=== PATIENT | male | born 1955 | race Caucasian/White ===

== ENCOUNTER 2018-02-22 11:40 | Inpatient (IN) | payer MEDICAID ==
[~2018-02-22] VITALS: Ht 185.4 cm; Wt 85.3 kg
[~2018-02-22 11:40] MED LIST: AMIO100T4 PO; COR12 PO; COR6 PO; FEXO-25 PO; FURO-152 PO; LISI-650 PO; MAGN200T5 PO; WARF2TAB57 PO; WARF4TAB40 PO
[2018-02-22 13:50] LABS: CHLORIDE 104 mEq/L (98-107)
[2018-02-22 13:51] LABS: BASOPHILS % 0.7 % (0.0-2.0); EOSINOPHILS % 2.7 % (0.0-5.0); HEMATOCRIT. 36.4 % (42.0-52.0); HEMOGLOBIN. 12.3 g/dL (14.0-18.0); LYMPHOCYTES % 16.9 % (20.0-50.0); MEAN CORPUSCULAR VOLUME 94.3 fL (80.0-94.0); MEAN PLATELET VOLUME 8.5 fl (7.4-10.4); MONOCYTES % 10.7 % (2.0-8.0); PLATELET 169 x1000/uL (130-400); RED BLOOD CELL COUNT 3.86 mill/uL (4.7-6.1); RED CELL DISTRIBUTION WIDTH 13.3 % (11.6-14.6)
[2018-02-22 13:57] LABS: INR 1.9; PARTIAL THROMBOPLASTIN TIME 35.4 sec (23.4-31.0); PROTHROMBIN TIME 19.1 sec (9.1-11.1)
[2018-02-22] MEDS ORDERED: FUROSEMIDE 20MG/2ML VIAL IVP ONE (14:15)
[2018-02-22 16:44] VITALS: BP 118/69
[2018-02-22] MEDS ORDERED: CLONIDINE 0.1MG TABLET PO PRN (16:45)
[2018-02-22] MEDS ORDERED: IPRATROPIUM/ALBUTEROL 0.5-3(2.5)MG/3ML NEB INH PRN (16:45)
[2018-02-22] MEDS ORDERED: ONDANSETRON HCL 4MG/2ML INJ IV PRN (16:45)
[2018-02-22] MEDS ORDERED: MAGNESIUM/ALUMINUM HYDROXIDE/SIMETHICONE 30ML UDC PO PRN (16:45)
[2018-02-22] MEDS ORDERED: FUROSEMIDE 20MG/2ML VIAL IV NR (17:00)
[2018-02-22 17:10] VITALS: BP 118/69
[2018-02-22] MEDS ORDERED: ENOXAPARIN 30MG/0.3ML SYR SUBCUT SCH (17:15)
[2018-02-22] MEDS ORDERED: FERR325T6 PO (17:29)
[2018-02-22] MEDS ORDERED: LEVO50TA8 PO (17:29)
[2018-02-22 18:22] VITALS: BP 85/18
[2018-02-22 18:24] VITALS: BP 111/64
[2018-02-22 18:54] LABS: *AMPHETAMINES SCREEN URINE NEGATIVE (NEGATIVE)
[2018-02-22 18:55] LABS: *BARBITURATES SCREEN URINE NEGATIVE (NEGATIVE); *BENZODIAZEPINES SCREEN URINE NEGATIVE (NEGATIVE); *COCAINE SCREEN URINE NEGATIVE (NEGATIVE); METHADONE URINE SCREEN NEGATIVE (NEGATIVE); OPIATES URINE SCREEN NEGATIVE (NEGATIVE)
[2018-02-22 18:56] LABS: CANNABINOID URINE SCREEN NEGATIVE (NEGATIVE); PHENCYCLIDINE URINE SCREEN NEGATIVE (NEGATIVE)
[2018-02-22 20:00] VITALS: BP 116/76
[2018-02-22] MEDS ORDERED: ENOXAPARIN 80MG/0.8ML SYR SUBCUT SCH (21:00)
[2018-02-22] MEDS: SODIUM CHLORIDE 0.9% INJ 3ML FLUSH IVF SCH (21:15)
[2018-02-22] MEDS: CARVEDILOL 6.25 MG TABLET PO SCH (21:18)
[2018-02-22 22:00] VITALS: BP 105/67
[2018-02-23] VITALS (11 sets, daily range): BP systolic 91–125; BP diastolic 38–76
[2018-02-23] MEDS: SODIUM CHLORIDE 0.9% INJ 3ML FLUSH IVF SCH ×3 (05:41→22:35)
[2018-02-23 07:04] LABS: BASOPHILS % 0.8 % (0.0-2.0); EOSINOPHILS % 3.2 % (0.0-5.0); HEMATOCRIT. 35.2 % (42.0-52.0); HEMOGLOBIN. 12.1 g/dL (14.0-18.0); LYMPHOCYTES % 20.8 % (20.0-50.0); MEAN CORPUSCULAR HEMOGLOBIN 31.9 pg (28.0-32.0); MEAN CORPUSCULAR VOLUME 93.2 fL (80.0-94.0); MEAN PLATELET VOLUME 8.6 fl (7.4-10.4); NEUTROPHILS % 63.2 % (40.0-76.0); PLATELET 164 x1000/uL (130-400); RED BLOOD CELL COUNT 3.78 mill/uL (4.7-6.1); RED CELL DISTRIBUTION WIDTH 13.1 % (11.6-14.6)
[2018-02-23 07:07] LABS: D-DIMER 0.57 mg/L FEU (<0.50); INR 1.7; PROTHROMBIN TIME 17.1 sec (9.1-11.1)
[2018-02-23 07:15] LABS: CHLORIDE 105 mEq/L (98-107)
[2018-02-23 07:24] LABS: CREATINE KINASE MB FRACTION 1.2 ng/mL (0.5-3.6); LDL CHOLESTEROL 111 mg/dL (5-100)
[2018-02-23 07:25] LABS: CREATINE KINASE 91 IU/L (39-308)
[2018-02-23 07:26] LABS: HDL CHOLESTEROL 41 mg/dL (40-59)
[2018-02-23] MEDS: CARVEDILOL 6.25 MG TABLET PO SCH ×2 (08:42→19:58)
[2018-02-23] MEDS: ENOXAPARIN 80MG/0.8ML SYR SUBCUT SCH ×2 (09:11→19:58)
[2018-02-23] MEDS: LEVOTHYROXINE SODIUM 50MCG TABLET PO SCH (11:53)
[2018-02-23] MEDS ORDERED: REGADENOSON 0.4 MG/5 ML IV ONE (12:45)
[2018-02-23] MEDS ORDERED: REGADENOSON 0.4 MG/5 ML IV SCH (16:15)
[2018-02-23] MEDS: DILTIAZEM HCL 30MG TABLET PO SCH ×2 (17:53→23:05)
[2018-02-24] VITALS (14 sets, daily range): BP systolic 100–120; BP diastolic 52–83
[2018-02-24 05:38] LABS: EOSINOPHILS % 4.7 % (0.0-5.0); HEMOGLOBIN. 11.6 g/dL (14.0-18.0); LYMPHOCYTES % 28.9 % (20.0-50.0); MEAN CORPUSCULAR HEMOGLOBIN 32.7 pg (28.0-32.0); MEAN CORPUSCULAR VOLUME 93.2 fL (80.0-94.0); MEAN PLATELET VOLUME 8.5 fl (7.4-10.4); MONOCYTES % 14.5 % (2.0-8.0); NEUTROPHILS % 50.9 % (40.0-76.0); PLATELET 149 x1000/uL (130-400); RED BLOOD CELL COUNT 3.54 mill/uL (4.7-6.1); RED CELL DISTRIBUTION WIDTH 13.4 % (11.6-14.6)
[2018-02-24 05:46] LABS: CHLORIDE 105 mEq/L (98-107)
[2018-02-24] MEDS: DILTIAZEM HCL 30MG TABLET PO SCH ×4 (06:00→23:46)
[2018-02-24] MEDS: LEVOTHYROXINE SODIUM 50MCG TABLET PO SCH (06:16)
[2018-02-24] MEDS: SODIUM CHLORIDE 0.9% INJ 3ML FLUSH IVF SCH ×3 (06:16→21:55)
[2018-02-24] MEDS: CARVEDILOL 6.25 MG TABLET PO SCH ×2 (09:00→21:42)
[2018-02-24] MEDS: ENOXAPARIN 80MG/0.8ML SYR SUBCUT SCH ×2 (09:00→21:41)
[2018-02-24] MEDS ORDERED: REGADENOSON 0.4 MG/5 ML IV ONE (09:35)
[2018-02-24] MEDS ORDERED: WARFARIN SODIUM 5MG TABLET PO NR (18:00)
[2018-02-24] MEDS: ACETAMINOPHEN 325MG TABLET PO PRN (21:54)
[2018-02-25] VITALS (14 sets, daily range): BP systolic 100–142; BP diastolic 57–99
[2018-02-25 06:05] LABS: INR 1.3; PROTHROMBIN TIME 12.9 sec (9.1-11.1)
[2018-02-25] MEDS: DILTIAZEM HCL 30MG TABLET PO SCH ×3 (06:58→17:47)
[2018-02-25] MEDS: LEVOTHYROXINE SODIUM 50MCG TABLET PO SCH (06:58)
[2018-02-25] MEDS: CARVEDILOL 6.25 MG TABLET PO SCH ×2 (09:00→21:29)
[2018-02-25] MEDS: ENOXAPARIN 80MG/0.8ML SYR SUBCUT SCH ×2 (09:10→21:31)
[2018-02-25] MEDS: SODIUM CHLORIDE 0.9% INJ 3ML FLUSH IVF SCH ×3 (09:11→21:31)
[2018-02-25] MEDS ORDERED: WARFARIN SODIUM 7.5MG TABLET PO NR (18:00)
[2018-02-26] VITALS (17 sets, daily range): BP systolic 102–168; BP diastolic 35–86
[2018-02-26] MEDS: DILTIAZEM HCL 30MG TABLET PO SCH ×4 (00:16→17:57)
[2018-02-26] MEDS: SODIUM CHLORIDE 0.9% INJ 3ML FLUSH IVF SCH ×3 (06:02→22:38)
[2018-02-26] MEDS: LEVOTHYROXINE SODIUM 50MCG TABLET PO SCH (06:02)
[2018-02-26 06:11] LABS: T4 FREE 1.07 ng/dL (0.76-1.46)
[2018-02-26] MEDS: CARVEDILOL 6.25 MG TABLET PO SCH ×2 (08:29→22:09)
[2018-02-26] MEDS: ENOXAPARIN 80MG/0.8ML SYR SUBCUT SCH (12:52)
[2018-02-26] MEDS: ACETAMINOPHEN 325MG TABLET PO PRN (22:09)
[2018-02-27] VITALS (12 sets, daily range): BP systolic 105–140; BP diastolic 58–79
[2018-02-27] MEDS: DILTIAZEM HCL 30MG TABLET PO SCH ×4 (00:32→17:57)
[2018-02-27] MEDS: LEVOTHYROXINE SODIUM 50MCG TABLET PO SCH (06:16)
[2018-02-27] MEDS: SODIUM CHLORIDE 0.9% INJ 3ML FLUSH IVF SCH ×3 (06:26→21:30)
[2018-02-27 06:39] LABS: EOSINOPHILS % 5.3 % (0.0-5.0); HEMOGLOBIN. 10.5 g/dL (14.0-18.0); LYMPHOCYTES % 29.8 % (20.0-50.0); MEAN CORPUSCULAR HEMOGLOBIN 32.6 pg (28.0-32.0); MEAN CORPUSCULAR VOLUME 93.2 fL (80.0-94.0); MEAN PLATELET VOLUME 8.2 fl (7.4-10.4); MONOCYTES % 14.3 % (2.0-8.0); NEUTROPHILS % 49.6 % (40.0-76.0); PLATELET 142 x1000/uL (130-400); RED BLOOD CELL COUNT 3.23 mill/uL (4.7-6.1); RED CELL DISTRIBUTION WIDTH 13.1 % (11.6-14.6)
[2018-02-27 06:44] LABS: INR 1.6; PROTHROMBIN TIME 15.5 sec (9.1-11.1)
[2018-02-27 06:56] LABS: CHLORIDE 103 mEq/L (98-107)
[2018-02-27] MEDS ORDERED: LIDOCAINE HCL 1% 20ML VIAL (Pyxis) INJ ONE (07:24)
[2018-02-27] MEDS ORDERED: FENTANYL CITRATE/PF 50MCG/ML 2ML VIAL ONE (08:15)
[2018-02-27] MEDS ORDERED: ROCURONIUM BROMIDE 10MG/ML VIAL 5ML IV ONE ×2 (08:15→08:51)
[2018-02-27] MEDS ORDERED: MIDAZOLAM HCL 2 MG/2 ML VIAL ONE (08:15)
[2018-02-27] MEDS ORDERED: SUCCINYLCHOLINE CHLORIDE 200MG/10ML IV ONE (08:16)
[2018-02-27] MEDS ORDERED: CEFAZOLIN SODIUM 1000MG/VIAL ONE (08:16)
[2018-02-27] MEDS ORDERED: ETOMIDATE 2MG/ML 10ML VIAL IV ONE (08:51)
[2018-02-27] MEDS ORDERED: HEPARIN 1000 UNITS/ML 10ML ONE (08:51)
[2018-02-27] MEDS: CARVEDILOL 6.25 MG TABLET PO SCH ×2 (09:00→21:31)
[2018-02-27] MEDS ORDERED: MORPHINE SULFATE 10 MG/ML CPJ IV PRN (10:00)
[2018-02-27] MEDS ORDERED: MEPERIDINE HCL/PF 25MG/ML CPJ IV PRN (10:00)
[2018-02-27] MEDS ORDERED: FENTANYL CITRATE/PF 50MCG/ML 2ML VIAL IV PRN (10:00)
[2018-02-27] MEDS ORDERED: ONDANSETRON HCL 4MG/2ML INJ IV PRN ×2 (10:00→14:00)
[2018-02-27] MEDS ORDERED: ATROPINE SULFATE 1MG/10ML SYR IV PRN (14:00)
[2018-02-27] MEDS: HYDROMORPHONE HCL/PF 2MG/ML CPJ IV PRN ×2 (14:54→15:19)
[2018-02-27] MEDS ORDERED: HEPARIN SODIUM 1,000 UNIT/1ML VIAL IV ONE (15:06)
[2018-02-27] MEDS ORDERED: WARFARIN SODIUM 5MG TABLET PO NR (22:15)
[2018-02-28] VITALS (9 sets, daily range): BP systolic 103–145; BP diastolic 53–84
[2018-02-28] MEDS: DILTIAZEM HCL 30MG TABLET PO SCH ×4 (00:28→18:00)
[2018-02-28] MEDS: LEVOTHYROXINE SODIUM 50MCG TABLET PO SCH (06:25)
[2018-02-28] MEDS: SODIUM CHLORIDE 0.9% INJ 3ML FLUSH IVF SCH ×2 (06:27→14:00)
[2018-02-28 06:42] LABS: HEMATOCRIT. 29.4 % (42.0-52.0); HEMOGLOBIN. 10.3 g/dL (14.0-18.0); MEAN PLATELET VOLUME 8.3 fl (7.4-10.4); PLATELET 124 x1000/uL (130-400); RED BLOOD CELL COUNT 3.13 mill/uL (4.7-6.1); RED CELL DISTRIBUTION WIDTH 13.1 % (11.6-14.6)
[2018-02-28 06:50] LABS: INR 1.5; PROTHROMBIN TIME 14.7 sec (9.1-11.1)
[2018-02-28 07:08] LABS: CHLORIDE 104 mEq/L (98-107)
[2018-02-28] MEDS: CARVEDILOL 6.25 MG TABLET PO SCH (08:31)
[2018-02-28 09:46] LABS: PLATELET ESTIMATE SLIGHTLY DECREASED
[2018-02-28] MEDS: ACETAMINOPHEN 325MG TABLET PO PRN (10:58)
[2018-02-28] MEDS ORDERED: WARFARIN SODIUM 3MG TABLET PO SCH (18:00)
== END 2018-02-28 18:11 | disposition home or self-care (01) | DRG 175 ==
LOC: ER 11:40 → EDBEDREQTM 13:34 → EDBEDREQ 13:34 → EDBEDREQSVC 13:34 → 3WST 13:51 → EDBEDREQ 13:55 → ENRESERV 15:09
PROVIDERS: ADMIT Internal Medicine; ATTEND Internal Medicine
PROC: 02583ZZ Destruction of Conduction Mechanism, Percutaneous Approach (ICD-10-PCS; principal; 2018-02-27)
PROC: 4A023N8 Measurement of Cardiac Sampling and Pressure, Bilateral, Percutaneous Approach (ICD-10-PCS; 2018-02-27)
PROC: B2141ZZ Fluoroscopy of Right Heart using Low Osmolar Contrast (ICD-10-PCS; 2018-02-27)
PROC: 02573ZK Destruction of Left Atrial Appendage, Percutaneous Approach (ICD-10-PCS; 2018-02-27)
PROC: 4A0234Z Measurement of Cardiac Electrical Activity, Percutaneous Approach (ICD-10-PCS; 2018-02-27)
PROC: B2111ZZ Fluoroscopy of Multiple Coronary Arteries using Low Osmolar Contrast (ICD-10-PCS; 2018-02-27)
DX: I48.4 Atypical atrial flutter (principal); N17.0 Acute kidney failure with tubular necrosis; I47.2 Ventricular tachycardia; I11.0 Hypertensive heart disease with heart failure; E87.5 Hyperkalemia; J84.10 Pulmonary fibrosis, unspecified; I42.9 Cardiomyopathy, unspecified; Q25.1 Coarctation of aorta; R07.9 Chest pain, unspecified; J44.9 Chronic obstructive pulmonary disease, unspecified; R74.0 Nonspecific elevation of levels of transaminase and lactic acid dehydrogenase [LDH]; Q23.0 Congenital stenosis of aortic valve; Z79.01 Long term (current) use of anticoagulants; Z87.891 Personal history of nicotine dependence; Z95.2 Presence of prosthetic heart valve; Z82.49 Family history of ischemic heart disease and other diseases of the circulatory system; I50.9 Heart failure, unspecified
CPT/HCPCS: 36415; 36620; 71045; 78452; 80048; 80061; 80305; 82550; 82553; 83735; 83880; 84439; 84443; 84484; 85347; 85379; 86850; 86900; 92960; 93005; 93017; 93306; 93613; 93621; 93655; 93656; 93662; 93970; 96372; 96374; 96375; 99285; A9500; C1730; C1731; C1732; C1759; C1760; C1893; J0330; J0690; J1170; J1644; J1650; J1940; J2250; J2405; J2785; J3010; J3490

== ENCOUNTER 2020-01-25 05:59 | Inpatient (IN) | payer MEDICAID ==
[~2020-01-25] VITALS: Ht 185.4 cm; Wt 95.5 kg
[2020-01-25] VITALS (7 sets, daily range): BP systolic 109–131; BP diastolic 55–74
[~2020-01-25 05:59] MED LIST changes: -AMIO100T4 PO; +ATOR10TA PO; -COR12 PO; +FERR325T6 PO; -FEXO-25 PO; -FURO-152 PO; +FURO40TA5 MT; +LEVO50TA8 PO; -LISI-650 PO; +LOV80 SQ
[2020-01-25] MEDS ORDERED: MAGN400T26 MT (07:58)
[2020-01-25] MEDS ORDERED: WARF3TAB58 MT (07:58)
[2020-01-25] MEDS ORDERED: WARF-67 MT (07:58)
[2020-01-25] MEDS ORDERED: LISI-186 MT (07:58)
[2020-01-25] MEDS ORDERED: HEPARIN 1,000 UNITS PREMIX 1,500 ML IV ONE (08:48)
[2020-01-25] MEDS ORDERED: MIDAZOLAM HCL 2 MG/2 ML VIAL ONE (08:51)
[2020-01-25] MEDS ORDERED: PROPOFOL 200MG/20ML VIAL IV ONE ×2 (08:51→11:09)
[2020-01-25] MEDS ORDERED: FENTANYL CITRATE/PF 50MCG/ML 2ML VIAL ONE ×2 (08:51→14:00)
[2020-01-25] MEDS ORDERED: ONDANSETRON HCL 4MG/2ML INJ ONE (08:52)
[2020-01-25] MEDS ORDERED: DEXAMETHASONE 4MG/ML 1ML VIAL ONE (08:52)
[2020-01-25] MEDS ORDERED: SODIUM CHLORIDE 0.9% 10ML VIAL ONE (09:37)
[2020-01-25] MEDS ORDERED: EPHEDRINE SULFATE 50MG/ML VIAL ONE (09:37)
[2020-01-25] MEDS ORDERED: CEFAZOLIN SODIUM 1000MG/VIAL ONE (09:37)
[2020-01-25] MEDS ORDERED: LIDOCAINE HCL/PF 1% 10 MG/ML 5ML VIAL ONE (09:37)
[2020-01-25] MEDS ORDERED: ONDANSETRON HCL 4MG/2ML INJ IV PRN ×3 (09:45→19:45)
[2020-01-25] MEDS ORDERED: LABETALOL 5MG/ML SYR 20 MG/4 ML SYRINGE IV PRN (09:45)
[2020-01-25] MEDS ORDERED: MEPERIDINE HCL/PF 25MG/ML CPJ IV PRN (09:45)
[2020-01-25] MEDS ORDERED: HYDROMORPHONE HCL/PF 2MG/ML CPJ IV PRN ×2 (09:45→16:30)
[2020-01-25] MEDS ORDERED: LIDOCAINE HCL 1% 20ML VIAL (Pyxis) INJ ONE ×2 (09:58→09:59)
[2020-01-25] MEDS ORDERED: HEPARIN SODIUM 1,000 UNIT/1ML VIAL IV ONE (10:00)
[2020-01-25] MEDS ORDERED: ROCURONIUM BROMIDE 10MG/ML VIAL 5ML IV ONE ×3 (11:06→13:40)
[2020-01-25] MEDS ORDERED: GLYCOPYRROLATE 0.2 MG/ML 2ML VIAL ONE (14:25)
[2020-01-25] MEDS ORDERED: NEOSTIGMINE METHYLSULFATE 1MG/ML 10 ML VIAL ONE (14:26)
[2020-01-25] MEDS ORDERED: ACETAMINOPHEN 325MG TABLET PO PRN (14:30)
[2020-01-25 14:44] LABS: INR 2.9; PROTHROMBIN TIME 29.2 sec (9.6-11.0)
[2020-01-25] MEDS ORDERED: WARFARIN SODIUM 3MG TABLET PO NR (19:00)
[2020-01-25] MEDS ORDERED: ATORVASTATIN CALCIUM 10MG TABLET PO SCH (21:00)
[2020-01-26] VITALS (9 sets, daily range): BP systolic 107–127; BP diastolic 47–70
[2020-01-26] MEDS ORDERED: FURO40TA5 MT (04:37)
[2020-01-26] MEDS ORDERED: LISI-186 MT (04:37)
[2020-01-26] MEDS ORDERED: WARF6TAB48 MT (04:37)
[2020-01-26] MEDS ORDERED: FISH GT (04:37)
[2020-01-26] MEDS ORDERED: MAGN400C MT (04:37)
[2020-01-26] MEDS ORDERED: MULT-1274 PO (04:37)
[2020-01-26] MEDS ORDERED: FERR325T6 PO (04:37)
[2020-01-26] MEDS ORDERED: LEVO50TA8 MT (04:37)
[2020-01-26 06:49] LABS: INR 2.8; PROTHROMBIN TIME 27.6 sec (9.6-11.0)
[2020-01-26] MEDS ORDERED: LEVOTHYROXINE SODIUM 50MCG TABLET PO SCH (06:50)
[2020-01-26 06:55] LABS: HEMATOCRIT. 33.6 % (42.0-52.0); HEMOGLOBIN. 11.5 g/dL (14.0-18.0); MEAN CORPUSCULAR HEMOGLOBIN 31.6 pg (28.0-32.0); MEAN CORPUSCULAR VOLUME 92.5 fL (80.0-94.0); PLATELET 217 x1000/uL (130-400); RED BLOOD CELL COUNT 3.64 mill/uL (4.7-6.1); RED CELL DISTRIBUTION WIDTH 13.3 % (11.6-14.6)
[2020-01-26 07:20] LABS: CHLORIDE 101 mEq/L (98-107)
[2020-01-26] MEDS ORDERED: CARVEDILOL 6.25 MG TABLET PO SCH (07:20)
[2020-01-26] MEDS ORDERED: LISINOPRIL 5MG TABLET PO SCH (09:00)
[2020-01-26] MEDS ORDERED: FUROSEMIDE 40MG TABLET PO SCH (09:00)
[2020-01-26] MEDS ORDERED: MAGNESIUM OXIDE 400MG TABLET PO SCH (09:00)
[2020-01-26 11:16] LABS: PLATELET ESTIMATE NORMAL
[2020-01-26] MEDS ORDERED: WARFARIN SODIUM 3MG TABLET PO SCH (18:00)
== END 2020-01-26 16:44 | disposition home or self-care (01) | DRG 175 ==
LOC: CCL 05:59 → 3WST 17:00
PROVIDERS: ADMIT Internal Medicine Clinical Cardiac Electrophysiology; ATTEND Internal Medicine Clinical Cardiac Electrophysiology
PROC: 02583ZZ Destruction of Conduction Mechanism, Percutaneous Approach (ICD-10-PCS; principal; 2020-01-25)
PROC: 02K83ZZ Map Conduction Mechanism, Percutaneous Approach (ICD-10-PCS; 2020-01-25)
PROC: 4A0234Z Measurement of Cardiac Electrical Activity, Percutaneous Approach (ICD-10-PCS; 2020-01-25)
PROC: 4A023N8 Measurement of Cardiac Sampling and Pressure, Bilateral, Percutaneous Approach (ICD-10-PCS; 2020-01-25)
PROC: B2111ZZ Fluoroscopy of Multiple Coronary Arteries using Low Osmolar Contrast (ICD-10-PCS; 2020-01-25)
PROC: B2151ZZ Fluoroscopy of Left Heart using Low Osmolar Contrast (ICD-10-PCS; 2020-01-25)
DX: I48.4 Atypical atrial flutter (principal); I48.20 Chronic atrial fibrillation, unspecified; I47.9 Paroxysmal tachycardia, unspecified; I35.9 Nonrheumatic aortic valve disorder, unspecified; I95.2 Hypotension due to drugs; R00.1 Bradycardia, unspecified; J44.9 Chronic obstructive pulmonary disease, unspecified; Z87.891 Personal history of nicotine dependence; Z79.01 Long term (current) use of anticoagulants; E87.1 Hypo-osmolality and hyponatremia; Z87.74 Personal history of (corrected) congenital malformations of heart and circulatory system; Z95.4 Presence of other heart-valve replacement
CPT/HCPCS: 36415; 80048; 85025; 85347; 92960; 93005; 93613; 93621; 93653; 93662; 93799; C1730; C1731; C1732; C1759; C1760; C1893; J0690; J1100; J1170; J1644; J2250; J2405; J2704; J2710; J3010; J3490

== ENCOUNTER 2020-07-07 21:52 | Inpatient (IN) | payer MEDICAID ==
[~2020-07-07] VITALS: Ht 185.4 cm; Wt 79.0 kg
[~2020-07-07 21:52] MED LIST changes: +FISH GT; +LEVO50TA8 MT; +LISI-186 MT; +MAGN400C MT; +MAGN400T26 MT; +MULT-1274 PO; +WARF-67 MT; +WARF3TAB58 MT; +WARF6TAB48 MT
[2020-07-08] VITALS (9 sets, daily range): BP systolic 95–123; BP diastolic 51–80
[2020-07-08 01:05] LABS: BASOPHILS % 1.1 % (0.0-2.0); EOSINOPHILS % 4.7 % (0.0-5.0); HEMATOCRIT. 35.1 % (42.0-52.0); HEMOGLOBIN. 12.2 g/dL (14.0-18.0); LYMPHOCYTES % 26.7 % (20.0-50.0); MEAN CORPUSCULAR HEMOGLOBIN 32.1 pg (28.0-32.0); MEAN CORPUSCULAR VOLUME 92.3 fL (80.0-94.0); MEAN PLATELET VOLUME 7.9 fl (7.4-10.4); MONOCYTES % 12.5 % (2.0-8.0); PLATELET 181 x1000/uL (130-400); RED CELL DISTRIBUTION WIDTH 13.3 % (11.6-14.6)
[2020-07-08 01:07] LABS: CHLORIDE 105 mEq/L (98-107)
[2020-07-08] MEDS ORDERED: DILTIAZEM HCL 5MG/ML 5ML VIAL IV ONE (01:30)
[2020-07-08 01:51] LABS: INR 1.4; PROTHROMBIN TIME 14.2 sec (9.6-11.0)
[2020-07-08] MEDS ORDERED: ASPIRIN 325MG EC TABLET PO ONE (02:45)
[2020-07-08] MEDS ORDERED: ENOXAPARIN 80MG/0.8ML SYR SUBCUT ONE (02:45)
[2020-07-08] MEDS ORDERED: SODIUM POLYSTYRENE SULFONATE 15 G/60 ML BOT PO NR (10:15)
[2020-07-08] MEDS ORDERED: ONDANSETRON HCL 4MG/2ML INJ IV PRN (14:30)
[2020-07-08] MEDS ORDERED: DOCUSATE SODIUM 100MG CAPSULE PO PRN (14:30)
[2020-07-08] MEDS ORDERED: HYDROCODONE/ACETAMINOPHEN 5/325MG TABLET PO PRN (14:30)
[2020-07-08] MEDS ORDERED: ACETAMINOPHEN 325MG TABLET PO PRN ×2 (14:30)
[2020-07-08] MEDS ORDERED: IPRATROPIUM/ALBUTEROL 0.5-3(2.5)MG/3ML NEB HHN PRN (14:30)
[2020-07-08] MEDS ORDERED: LORAZEPAM 0.5MG TABLET PO PRN (14:30)
[2020-07-08] MEDS ORDERED: CLONIDINE 0.1MG TABLET PO PRN (14:30)
[2020-07-08] MEDS: LEVOTHYROXINE SODIUM 50MCG TABLET PO SCH (15:22)
[2020-07-08] MEDS: ENOXAPARIN 80MG/0.8ML SYR SUBCUT SCH (17:03)
[2020-07-08 17:20] LABS: *AMPHETAMINES SCREEN URINE NEGATIVE (NEGATIVE)
[2020-07-08 17:21] LABS: *BARBITURATES SCREEN URINE NEGATIVE (NEGATIVE); *COCAINE SCREEN URINE NEGATIVE (NEGATIVE); OPIATES URINE SCREEN NEGATIVE (NEGATIVE)
[2020-07-08 17:22] LABS: PHENCYCLIDINE URINE SCREEN NEGATIVE (NEGATIVE)
[2020-07-08 17:24] LABS: *BENZODIAZEPINES SCREEN URINE NEGATIVE (NEGATIVE); CANNABINOID URINE SCREEN NEGATIVE (NEGATIVE)
[2020-07-08 17:25] LABS: METHADONE URINE SCREEN NEGATIVE (NEGATIVE)
[2020-07-08] MEDS ORDERED: DRONEDARONE (MULTAQ) 400MG TABLET PO NR (22:00)
[2020-07-09] VITALS (10 sets, daily range): BP systolic 90–132; BP diastolic 40–78
[2020-07-09] MEDS ORDERED: DRONEDARONE (MULTAQ) 400MG TABLET PO SCH (05:00)
[2020-07-09] MEDS: ENOXAPARIN 80MG/0.8ML SYR SUBCUT SCH (05:24)
[2020-07-09] MEDS: LEVOTHYROXINE SODIUM 50MCG TABLET PO SCH (05:26)
[2020-07-09 07:13] LABS: EOSINOPHILS % 3.8 % (0.0-5.0); HEMATOCRIT. 35.8 % (42.0-52.0); HEMOGLOBIN. 12.1 g/dL (14.0-18.0); LYMPHOCYTES % 26.7 % (20.0-50.0); MEAN CORPUSCULAR HEMOGLOBIN 31.3 pg (28.0-32.0); MEAN CORPUSCULAR VOLUME 93.1 fL (80.0-94.0); MONOCYTES % 12.1 % (2.0-8.0); NEUTROPHILS % 56.4 % (40.0-76.0); PLATELET 171 x1000/uL (130-400); RED BLOOD CELL COUNT 3.85 mill/uL (4.7-6.1); RED CELL DISTRIBUTION WIDTH 13.5 % (11.6-14.6)
[2020-07-09 07:14] LABS: CHLORIDE 105 mEq/L (98-107); INR 1.4; PARTIAL THROMBOPLASTIN TIME 40.8 sec (23.4-31.0); PROTHROMBIN TIME 14.4 sec (9.6-11.0)
[2020-07-09 07:20] LABS: TOTAL IRON BINDING CAPACITY 256 ug/dL (250-450)
[2020-07-09 07:21] LABS: LDL CHOLESTEROL 90 mg/dL (5-100)
[2020-07-09 07:23] LABS: HDL CHOLESTEROL 50 mg/dL (40-59)
[2020-07-09] MEDS ORDERED: PROPOFOL 10MG/ML 100ML 100 ML IV ONE (07:34)
[2020-07-09 07:41] LABS: FOLIC ACID (FOLATE) SERUM 17.3 ng/mL (>5.38)
[2020-07-09] MEDS ORDERED: ATROPINE SULFATE 1MG/10ML SYR IV PRN (08:00)
[2020-07-09] MEDS ORDERED: FERR325T6 MT (08:45)
[2020-07-09] MEDS ORDERED: FUROSEMIDE 40MG TABLET PO SCH (09:00)
[2020-07-09] MEDS ORDERED: LISINOPRIL 5MG TABLET PO SCH (09:00)
[2020-07-09] MEDS ORDERED: LIDOCAINE HCL/PF 1% 10 MG/ML 5ML VIAL ONE (09:03)
== END 2020-07-09 13:07 | disposition home or self-care (01) | DRG 201 ==
LOC: ER 21:52 → 3WST 07-08 02:33 → ENRESERV 07-08 07:27
PROVIDERS: ADMIT Internal Medicine; ATTEND Internal Medicine
PROC: 5A2204Z Restoration of Cardiac Rhythm, Single (ICD-10-PCS; principal; 2020-07-09)
DX: I48.91 Unspecified atrial fibrillation (principal); D68.9 Coagulation defect, unspecified; I27.20 Pulmonary hypertension, unspecified; E87.5 Hyperkalemia; I42.0 Dilated cardiomyopathy; I48.4 Atypical atrial flutter; D64.9 Anemia, unspecified; E03.9 Hypothyroidism, unspecified; I08.0 Rheumatic disorders of both mitral and aortic valves; I10 Essential (primary) hypertension; I45.10 Unspecified right bundle-branch block; R74.01 Elevation of levels of liver transaminase levels; I47.9 Paroxysmal tachycardia, unspecified; J44.9 Chronic obstructive pulmonary disease, unspecified; Z20.822 Contact with and (suspected) exposure to COVID-19; J84.10 Pulmonary fibrosis, unspecified; Z95.5 Presence of coronary angioplasty implant and graft; Z95.2 Presence of prosthetic heart valve; Z90.49 Acquired absence of other specified parts of digestive tract; Z87.891 Personal history of nicotine dependence; Z79.01 Long term (current) use of anticoagulants; Z86.79 Personal history of other diseases of the circulatory system; E61.1 Iron deficiency
CPT/HCPCS: 36415; 71045; 80048; 80053; 80061; 80305; 82607; 82728; 82746; 83036; 83540; 83550; 83735; 83880; 84100; 84132; 84443; 84484; 85025; 87426; 92960; 93005; 93306; 99291; J1650; J2704; J3490

== ENCOUNTER 2023-03-25 06:11 | Inpatient (IN) | payer MEDICARE, OTHER ==
[2023-03-25] VITALS (33 sets, daily range): BP systolic 91–157; BP diastolic 50–86; PULSE 80–103; RESP 10–23; TEMP 90.3–98.5
[~2023-03-25] VITALS: Ht 185.4 cm; Wt 85.3 kg
[~2023-03-25 06:11] MED LIST changes: +DRON400T MT; +FERR325T6 MT; -FERR325T6 PO; -LEVO50TA8 PO; -LOV80 SQ; -MAGN200T5 PO; -MAGN400T26 MT; -WARF2TAB57 PO; -WARF3TAB58 MT; -WARF4TAB40 PO
[2023-03-25 06:52] LABS: EOSINOPHILS % 4.4 % (0.0-5.0); HEMATOCRIT. 29.9 % (42.0-52.0); HEMOGLOBIN. 9.9 g/dL (14.0-18.0); LYMPHOCYTES % 31.3 % (20.0-50.0); MEAN CORPUSCULAR HEMOGLOBIN 31.4 pg (28.0-32.0); MEAN CORPUSCULAR HGB CONC 33.2 g/dL (31.0-37.0); MEAN CORPUSCULAR VOLUME 94.7 fL (80.0-94.0); MEAN PLATELET VOLUME 8.3 fl (7.4-10.4); MONOCYTES % 11.1 % (2.0-8.0); NEUTROPHILS % 52.2 % (40.0-76.0); PLATELET 117 x1000/uL (130-400); RED BLOOD CELL COUNT 3.16 mill/uL (4.7-6.1); RED CELL DISTRIBUTION WIDTH 14.6 % (11.6-14.6); WHITE BLOOD COUNT 2.9 x1000/uL (4.5-11.0)
[2023-03-25 07:03] LABS: CALCIUM 9.8 mg/dL (8.7-10.4); CARBON DIOXIDE 26 mEq/L (21-32); CHLORIDE 105 mEq/L (98-107); CREATININE 1.1 mg/dL (0.6-1.3); GLUCOSE 90 mg/dL (70-105); POTASSIUM 4.4 mEq/L (3.5-5.1); SODIUM 138 mEq/L (136-145); UREA NITROGEN BLOOD 32 mg/dL (9-23)
[2023-03-25 07:08] LABS: INR 1.5; PARTIAL THROMBOPLASTIN TIME 52.5 sec (23.4-31.0)
[2023-03-25] MEDS ORDERED: GENTAMICIN 80MG in SODIUM CHLORIDE IRRIG SOLN 500ML IR NR (08:00)
[2023-03-25] MEDS ORDERED: CARV12.545 PO (08:18)
[2023-03-25] MEDS ORDERED: METO200T48 PO (08:18)
[2023-03-25] MEDS ORDERED: MAGN400T39 PO (08:18)
[2023-03-25] MEDS ORDERED: CHOL500010 PO (08:18)
[2023-03-25] MEDS ORDERED: SACU1TAB PO (08:18)
[2023-03-25] MEDS ORDERED: ENOX40SY27 SQ (08:18)
[2023-03-25] MEDS ORDERED: WARF6TAB48 PO (08:18)
[2023-03-25] MEDS ORDERED: WARF3TAB58 PO (08:18)
[2023-03-25] MEDS ORDERED: IODIXANOL 320MG/ML 100 ML BOTTLE IV ONE (08:22)
[2023-03-25] MEDS ORDERED: LIDOCAINE HCL 1% 20ML VIAL (Pyxis) INJ ONE (08:22)
[2023-03-25] MEDS ORDERED: FENTANYL CITRATE/PF 50MCG/ML 2ML VIAL ONE ×2 (08:40→10:43)
[2023-03-25] MEDS ORDERED: PROPOFOL 200MG/20ML VIAL IV ONE (08:40)
[2023-03-25] MEDS ORDERED: MIDAZOLAM HCL 2 MG/2 ML VIAL ONE (08:40)
[2023-03-25] MEDS ORDERED: GENTAMICIN SULF 40MG/ML 2ML VIAL ONE (11:14)
[2023-03-25] MEDS ORDERED: HYDROMORPHONE HCL/PF 2MG/ML CPJ IV PRN (11:30)
[2023-03-25] MEDS ORDERED: LABETALOL 5MG/ML SYR 20 MG/4 ML SYRINGE IV PRN (11:30)
[2023-03-25] MEDS ORDERED: ONDANSETRON HCL 4MG/2ML INJ IV PRN (11:30)
[2023-03-25] MEDS ORDERED: MEPERIDINE HCL/PF 25MG/ML CPJ IV PRN (11:30)
[2023-03-25] MEDS ORDERED: ALBUMIN HUMAN 12.5G/250ML (5%) IV ONE ×2 (12:10→12:43)
[2023-03-25] MEDS ORDERED: ROCURONIUM BROMIDE 10MG/ML VIAL 5ML IV ONE ×2 (12:23→13:22)
[2023-03-25] MEDS ORDERED: DESMOPRESSIN ACETATE 30 MCG in SODIUM CHLORIDE 0.9% 50 ML IV NR (12:30)
[2023-03-25] MEDS ORDERED: VASOPRESSIN 20 UNITS in SODIUM CHLORIDE 0.9% 100 ML IV PRN (12:30)
[2023-03-25] MEDS ORDERED: PHENYLEPHRINE HCL 10 MG/ML 1ML (IV VIAL) IV ONE ×3 (12:44→12:48)
[2023-03-25 12:57] LABS: BASOPHILS % 0.8 % (0.0-2.0); EOSINOPHILS % 4.1 % (0.0-5.0); HEMATOCRIT. 25.7 % (42.0-52.0); HEMOGLOBIN. 8.3 g/dL (14.0-18.0); LYMPHOCYTES % 33.5 % (20.0-50.0); MEAN CORPUSCULAR HGB CONC 32.5 g/dL (31.0-37.0); MEAN CORPUSCULAR VOLUME 95.4 fL (80.0-94.0); MEAN PLATELET VOLUME 8.6 fl (7.4-10.4); MONOCYTES % 10.1 % (2.0-8.0); NEUTROPHILS % 51.5 % (40.0-76.0); PLATELET 98 x1000/uL (130-400); RED BLOOD CELL COUNT 2.69 mill/uL (4.7-6.1); RED CELL DISTRIBUTION WIDTH 14.7 % (11.6-14.6); WHITE BLOOD COUNT 2.3 x1000/uL (4.5-11.0)
[2023-03-25 13:04] LABS: INR 1.6; PROTHROMBIN TIME 16.3 sec (9.6-11.0)
[2023-03-25 13:07] LABS: ALANINE AMINOTRANSFERASE 14 IU/L (10-49); ALBUMIN 3.6 g/dL (3.2-4.8); ASPARTATE AMINOTRANSFERASE 22 IU/L (<34); BILIRUBIN TOTAL 0.6 mg/dL (0.1-1.0); CALCIUM 8.7 mg/dL (8.7-10.4); CARBON DIOXIDE 26 mEq/L (21-32); CHLORIDE 107 mEq/L (98-107); GLUCOSE 84 mg/dL (70-105); POTASSIUM 4.7 mEq/L (3.5-5.1); PROTEIN TOTAL 5.9 g/dL (6.0-8.3); SODIUM 138 mEq/L (136-145); UREA NITROGEN BLOOD 29 mg/dL (9-23)
[2023-03-25] MEDS ORDERED: VANCOMYCIN HCL 500 MG/VIAL ONE (13:17)
[2023-03-25 16:38] LABS: BG BASE EXCESS -6.9 mmol/L (-2.0-2.0); BG CARBOXYHEMOGLOBIN 0.3 % (0.5-1.5); BG DEOXYHEMOGLOBIN 0.7 % (0.0-5.0); BG FRACTION INSPIRED OXYGEN 100; BG HCO3 ACT 19.7 mmol/L (22.0-26.0); BG OXYGEN SATURATION 99.3 % (92.0-98.5); BG PH 7.269 (7.350-7.450); BG PO2 340.7 mmHg (75.0-100.0); BG SAMPLE SITE RIGHT RADIAL; BG TOTAL HEMOGLOBIN 11.1 g/dL (12.0-18.0); BG VENT MODE VENT - AC
[2023-03-25] MEDS: PROPOFOL 10MG/ML 100ML 100 ML IV PRN (19:47)
[2023-03-25] MEDS: ATORVASTATIN CALCIUM 10MG TABLET PO SCH (22:18)
[2023-03-25 23:10] LABS: HEMATOCRIT. 28.5 % (42.0-52.0); HEMOGLOBIN. 9.6 g/dL (14.0-18.0); MEAN CORPUSCULAR HEMOGLOBIN 32.2 pg (28.0-32.0); MEAN CORPUSCULAR HGB CONC 33.8 g/dL (31.0-37.0); MEAN CORPUSCULAR VOLUME 95.3 fL (80.0-94.0); MEAN PLATELET VOLUME 8.5 fl (7.4-10.4); PLATELET 88 x1000/uL (130-400); RED BLOOD CELL COUNT 2.99 mill/uL (4.7-6.1); WHITE BLOOD COUNT 5.1 x1000/uL (4.5-11.0)
[2023-03-25 23:14] LABS: DIFFERENTIAL COMMENT 1
[2023-03-25 23:23] LABS: PLATELET ESTIMATE DECREASED
[2023-03-26] VITALS (79 sets, daily range): BP systolic 86–129; BP diastolic 45–81; PULSE 80–130; RESP 10–24; TEMP 98–99.8
[2023-03-26] MEDS: VANCOMYCIN 1G PREMIX 200 ML IV SCH ×2 (01:52→15:08)
[2023-03-26 06:31] LABS: HEMATOCRIT. 28.9 % (42.0-52.0); HEMOGLOBIN. 9.3 g/dL (14.0-18.0); MEAN CORPUSCULAR HEMOGLOBIN 31.3 pg (28.0-32.0); MEAN CORPUSCULAR HGB CONC 32.2 g/dL (31.0-37.0); MEAN CORPUSCULAR VOLUME 97.4 fL (80.0-94.0); PLATELET 82 x1000/uL (130-400); RED BLOOD CELL COUNT 2.97 mill/uL (4.7-6.1); RED CELL DISTRIBUTION WIDTH 14.9 % (11.6-14.6); WHITE BLOOD COUNT 5.3 x1000/uL (4.5-11.0)
[2023-03-26 06:40] LABS: INR 1.4; PROTHROMBIN TIME 14.6 sec (9.6-11.0)
[2023-03-26 07:10] LABS: CALCIUM 8.8 mg/dL (8.7-10.4); CARBON DIOXIDE 23 mEq/L (21-32); CHLORIDE 106 mEq/L (98-107); GLUCOSE 123 mg/dL (70-105); POTASSIUM 4.9 mEq/L (3.5-5.1); SODIUM 138 mEq/L (136-145); TRIGLYCERIDE 56 mg/dL (0-150); UREA NITROGEN BLOOD 27 mg/dL (9-23)
[2023-03-26 07:25] LABS: DIFFERENTIAL COMMENT 1
[2023-03-26 08:13] LABS: BG BASE EXCESS -3.4 mmol/L (-2.0-2.0); BG CARBOXYHEMOGLOBIN 0.3 % (0.5-1.5); BG DEOXYHEMOGLOBIN 10.1 % (0.0-5.0); BG FRACTION INSPIRED OXYGEN 30; BG HCO3 ACT 21.3 mmol/L (22.0-26.0); BG METHEMOGLOBIN 0.3 % (0.0-1.5); BG OXYGEN SATURATION 89.8 % (92.0-98.5); BG OXYHEMOGLOBIN 89.3 % (94.0-97.0); BG PCO2 36.6 mmHg (35.0-45.0); BG PH 7.382 (7.350-7.450); BG PO2 60.4 mmHg (75.0-100.0); BG SAMPLE SITE RIGHT RADIAL; BG TOTAL HEMOGLOBIN 9.5 g/dL (12.0-18.0); BG VENT MODE VENT - AC
[2023-03-26] MEDS: PROPOFOL 10MG/ML 100ML 100 ML IV PRN (08:14)
[2023-03-26 10:18] LABS: BG BASE EXCESS -1.7 mmol/L (-2.0-2.0); BG CARBOXYHEMOGLOBIN 0.1 % (0.5-1.5); BG DEOXYHEMOGLOBIN 8.6 % (0.0-5.0); BG FRACTION INSPIRED OXYGEN 40; BG HCO3 ACT 22.7 mmol/L (22.0-26.0); BG METHEMOGLOBIN 0.3 % (0.0-1.5); BG OXYGEN SATURATION 91.4 % (92.0-98.5); BG PCO2 36.9 mmHg (35.0-45.0); BG PH 7.406 (7.350-7.450); BG PO2 63.5 mmHg (75.0-100.0); BG SAMPLE SITE RIGHT RADIAL; BG TOTAL HEMOGLOBIN 9.8 g/dL (12.0-18.0); BG VENT MODE VENT - CPAP
[2023-03-26] MEDS ORDERED: THROAT LOZENGES-BENZOCAINE/MENTH/CETYLPYRD CL LOZENGES MM PRN (13:30)
[2023-03-26] MEDS ORDERED: HYDROCODONE/ACETAMINOPHEN 5/325MG TABLET PO PRN (13:30)
[2023-03-26] MEDS ORDERED: NALOXONE HCL 0.4MG/ML VIAL IV PRN (13:30)
[2023-03-26] MEDS ORDERED: THROAT LOZENGES-BENZOCAINE/MENTH/CETYLPYRD CL LOZENGES MM ONE (14:00)
[2023-03-26] MEDS: CARVEDILOL 12.5MG TABLET PO SCH ×2 (14:04→20:34)
[2023-03-26] MEDS: FUROSEMIDE 40MG TABLET PO SCH (14:04)
[2023-03-26] MEDS: MORPHINE SULFATE 2 MG/ML CPJ (NOT FOR IM USE) IV PRN (14:05)
[2023-03-26] MEDS: LEVOTHYROXINE SODIUM 50MCG TABLET PO SCH (14:05)
[2023-03-26 15:06] LABS: PLATELET ESTIMATE DECREASED
[2023-03-26] MEDS: ATORVASTATIN CALCIUM 10MG TABLET PO SCH (20:40)
[2023-03-27] VITALS (66 sets, daily range): BP systolic 76–117; BP diastolic 47–97; PULSE 80–125; RESP 13–27; TEMP 97.8–98.8
[2023-03-27] MEDS: VANCOMYCIN 1G PREMIX 200 ML IV SCH ×2 (02:01→16:02)
[2023-03-27 05:47] LABS: BASOPHILS % 0.4 % (0.0-2.0); EOSINOPHILS % 0.1 % (0.0-5.0); HEMATOCRIT. 24.5 % (42.0-52.0); HEMOGLOBIN. 7.9 g/dL (14.0-18.0); MEAN CORPUSCULAR HEMOGLOBIN 31.1 pg (28.0-32.0); MEAN CORPUSCULAR HGB CONC 32.3 g/dL (31.0-37.0); MEAN CORPUSCULAR VOLUME 96.4 fL (80.0-94.0); MEAN PLATELET VOLUME 9.1 fl (7.4-10.4); MONOCYTES % 8.2 % (2.0-8.0); NEUTROPHILS % 79.3 % (40.0-76.0); PLATELET 79 x1000/uL (130-400); RED BLOOD CELL COUNT 2.55 mill/uL (4.7-6.1); RED CELL DISTRIBUTION WIDTH 14.6 % (11.6-14.6); WHITE BLOOD COUNT 4.8 x1000/uL (4.5-11.0)
[2023-03-27 06:06] LABS: CALCIUM 8.7 mg/dL (8.7-10.4); CARBON DIOXIDE 28 mEq/L (21-32); CHLORIDE 102 mEq/L (98-107); GLUCOSE 94 mg/dL (70-105); POTASSIUM 4.3 mEq/L (3.5-5.1); SODIUM 135 mEq/L (136-145); UREA NITROGEN BLOOD 26 mg/dL (9-23)
[2023-03-27] MEDS: LEVOTHYROXINE SODIUM 50MCG TABLET PO SCH (08:26)
[2023-03-27] MEDS: CARVEDILOL 12.5MG TABLET PO SCH ×2 (09:00→20:33)
[2023-03-27] MEDS: FUROSEMIDE 40MG TABLET PO SCH (09:23)
[2023-03-27] MEDS: MORPHINE SULFATE 2 MG/ML CPJ (NOT FOR IM USE) IV PRN ×2 (09:25→16:02)
[2023-03-27] MEDS ORDERED: WARFARIN SODIUM 10MG TABLET PO NR (18:00)
[2023-03-27] MEDS: ATORVASTATIN CALCIUM 10MG TABLET PO SCH (20:33)
[2023-03-28] VITALS (7 sets, daily range): BP systolic 98–156; BP diastolic 50–142; PULSE 76–110; RESP 14–18; TEMP 98–98.7; O2SAT 96
[2023-03-28] MEDS: MORPHINE SULFATE 2 MG/ML CPJ (NOT FOR IM USE) IV PRN (04:16)
[2023-03-28 05:27] LABS: BASOPHILS % 0.4 % (0.0-2.0); HEMOGLOBIN. 7.8 g/dL (14.0-18.0); LYMPHOCYTES % 12.2 % (20.0-50.0); MEAN CORPUSCULAR HEMOGLOBIN 32.1 pg (28.0-32.0); MEAN CORPUSCULAR HGB CONC 33.8 g/dL (31.0-37.0); MEAN CORPUSCULAR VOLUME 94.9 fL (80.0-94.0); MEAN PLATELET VOLUME 8.7 fl (7.4-10.4); MONOCYTES % 7.6 % (2.0-8.0); NEUTROPHILS % 78.8 % (40.0-76.0); PLATELET 79 x1000/uL (130-400); RED BLOOD CELL COUNT 2.42 mill/uL (4.7-6.1); WHITE BLOOD COUNT 4.1 x1000/uL (4.5-11.0)
[2023-03-28 05:32] LABS: INR 1.2; PARTIAL THROMBOPLASTIN TIME 40.5 sec (23.4-31.0)
[2023-03-28 05:36] LABS: CALCIUM 8.9 mg/dL (8.7-10.4); CARBON DIOXIDE 27 mEq/L (21-32); CHLORIDE 103 mEq/L (98-107); CREATININE 0.9 mg/dL (0.6-1.3); GLUCOSE 98 mg/dL (70-105); SODIUM 135 mEq/L (136-145); UREA NITROGEN BLOOD 30 mg/dL (9-23)
[2023-03-28] MEDS: LEVOTHYROXINE SODIUM 50MCG TABLET PO SCH (06:09)
[2023-03-28] MEDS: FUROSEMIDE 40MG TABLET PO SCH (08:29)
[2023-03-28] MEDS: CARVEDILOL 12.5MG TABLET PO SCH ×2 (08:29→20:30)
[2023-03-28] MEDS: CEPHALEXIN 250MG CAPSULE PO SCH ×3 (10:40→17:07)
[2023-03-28] MEDS ORDERED: IPRATROPIUM/ALBUTEROL 0.5-3(2.5)MG/3ML NEB HHN PRN (10:45)
[2023-03-28] MEDS: IPRATROPIUM/ALBUTEROL 0.5-3(2.5)MG/3ML NEB HHN SCH ×2 (15:30→21:07)
[2023-03-28] MEDS ORDERED: WARFARIN SODIUM 10MG TABLET PO NR (18:00)
[2023-03-28] MEDS: ATORVASTATIN CALCIUM 10MG TABLET PO SCH (20:30)
[2023-03-29] VITALS (7 sets, daily range): BP systolic 99–110; BP diastolic 57–65; PULSE 92–111; RESP 15–20; TEMP 97.5–98.7; O2SAT 97
[2023-03-29] MEDS: MORPHINE SULFATE 2 MG/ML CPJ (NOT FOR IM USE) IV PRN ×2 (01:37→02:14)
[2023-03-29] MEDS: IPRATROPIUM/ALBUTEROL 0.5-3(2.5)MG/3ML NEB HHN SCH ×2 (02:56→08:05)
[2023-03-29 05:48] LABS: BASOPHILS % 0.4 % (0.0-2.0); EOSINOPHILS % 2.3 % (0.0-5.0); HEMATOCRIT. 23.4 % (42.0-52.0); HEMOGLOBIN. 8.1 g/dL (14.0-18.0); LYMPHOCYTES % 13.5 % (20.0-50.0); MEAN CORPUSCULAR HEMOGLOBIN 32.2 pg (28.0-32.0); MEAN CORPUSCULAR HGB CONC 34.5 g/dL (31.0-37.0); MEAN CORPUSCULAR VOLUME 93.3 fL (80.0-94.0); MEAN PLATELET VOLUME 8.8 fl (7.4-10.4); MONOCYTES % 8.6 % (2.0-8.0); NEUTROPHILS % 75.2 % (40.0-76.0); PLATELET 106 x1000/uL (130-400); RED BLOOD CELL COUNT 2.51 mill/uL (4.7-6.1); RED CELL DISTRIBUTION WIDTH 14.2 % (11.6-14.6); WHITE BLOOD COUNT 4.5 x1000/uL (4.5-11.0)
[2023-03-29 05:52] LABS: INR 1.3; PROTHROMBIN TIME 13.7 sec (9.6-11.0)
[2023-03-29] MEDS: LEVOTHYROXINE SODIUM 50MCG TABLET PO SCH (05:58)
[2023-03-29 06:03] LABS: CARBON DIOXIDE 28 mEq/L (21-32); CHLORIDE 104 mEq/L (98-107); GLUCOSE 108 mg/dL (70-105); SODIUM 137 mEq/L (136-145); UREA NITROGEN BLOOD 34 mg/dL (9-23)
[2023-03-29] MEDS: CEPHALEXIN 250MG CAPSULE PO SCH (09:13)
[2023-03-29] MEDS: CARVEDILOL 12.5MG TABLET PO SCH (09:15)
[2023-03-29] MEDS: FUROSEMIDE 40MG TABLET PO SCH (09:15)
[2023-03-29] MEDS ORDERED: WARFARIN SODIUM 10MG TABLET PO NR (18:00)
== END 2023-03-29 13:10 | disposition home health service (06) | DRG 276 ==
LOC: CCL 06:11 → CVICU 15:39 → 3WST 03-27 17:15
PROVIDERS: ADMIT Internal Medicine Clinical Cardiac Electrophysiology; ATTEND Internal Medicine Clinical Cardiac Electrophysiology
PROC: 0JH609Z Insertion of Cardiac Resynchronization Defibrillator Pulse Generator into Chest Subcutaneous Tissue and Fascia, Open Approach (ICD-10-PCS; principal; 2023-03-25)
PROC: 02HK3KZ Insertion of Defibrillator Lead into Right Ventricle, Percutaneous Approach (ICD-10-PCS; 2023-03-25)
PROC: 02H63KZ Insertion of Defibrillator Lead into Right Atrium, Percutaneous Approach (ICD-10-PCS; 2023-03-25)
PROC: B517YZZ Fluoroscopy of Left Subclavian Vein using Other Contrast (ICD-10-PCS; 2023-03-25)
PROC: 30233N1 Transfusion of Nonautologous Red Blood Cells into Peripheral Vein, Percutaneous Approach (ICD-10-PCS; 2023-03-25)
PROC: 02HL3KZ Insertion of Defibrillator Lead into Left Ventricle, Percutaneous Approach (ICD-10-PCS; 2023-03-25)
DX: I11.0 Hypertensive heart disease with heart failure (principal); I50.23 Acute on chronic systolic (congestive) heart failure; J96.00 Acute respiratory failure, unspecified whether with hypoxia or hypercapnia; I48.4 Atypical atrial flutter; I48.11 Longstanding persistent atrial fibrillation; I48.3 Typical atrial flutter; E87.20 Acidosis, unspecified; I42.0 Dilated cardiomyopathy; I95.2 Hypotension due to drugs; D50.0 Iron deficiency anemia secondary to blood loss (chronic); D69.6 Thrombocytopenia, unspecified; E78.5 Hyperlipidemia, unspecified; S20.212A Contusion of left front wall of thorax, initial encounter; I08.0 Rheumatic disorders of both mitral and aortic valves; I44.7 Left bundle-branch block, unspecified; E03.9 Hypothyroidism, unspecified; F17.210 Nicotine dependence, cigarettes, uncomplicated; Z79.899 Other long term (current) drug therapy; Z79.01 Long term (current) use of anticoagulants; X58.XXXA Exposure to other specified factors, initial encounter; Y93.89 Activity, other specified; Y92.89 Other specified places as the place of occurrence of the external cause; Y99.8 Other external cause status
CPT/HCPCS: 33225; 33249; 36415; 36600; 71045; 71250; 75820; 80048; 80053; 80202; 82375; 82805; 83735; 84478; 85025; 86850; 86900; 86920; 86927; 87070; 93005; 93306; 93640; 94002; 94003; 94640; 97162; 97166; 97535; A4565; C1722; C1769; C1893; C1898; C1899; J1580; J1644; J2250; J2270; J2370; J2597; J2704; J3010; J3370; J3490; P9012; P9016; P9041; Q9967